=== PATIENT | female | born 1980 | race Hispanic/Latino ===

== ENCOUNTER 2017-09-07 16:21 | Emergency (ER) | payer BC ==
[~2017-09-07] VITALS: Ht 172.7 cm; Wt 113.4 kg
== END 2017-09-07 17:25 | disposition home or self-care (01) ==
LOC: FSED 16:21
DX: M54.31 Sciatica, right side (principal); Z98.84 Bariatric surgery status
CPT/HCPCS: 99282

== ENCOUNTER 2019-01-04 17:34 | Emergency (ER) | payer BC ==
[~2019-01-04] VITALS: Ht 172.7 cm; Wt 113.4 kg
--- OUTSIDE RECORDS SUMMARY | 2019-01-04 17:36 | XMS REPORT ---
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 exam V72.31 Active Any Machado MD Routine gynecological examination Pelvic pain 625.9 Active Any Machado MD Unspecified symptom associated with female genital organs Screening for bacteriuria V81.5 Active Any Machado MD Screening for nephropathy Screening for endocrine disease V77.99 Active Any Machado MD Screening for other and unspecified endocrine, nutritional, metabolic, and immunity disorders BMI 36.0-36.9 Active Tova PETER Body Mass Index 36.0-36.9, adult Routine gynecological examination V72.31 Active Tova PETER Routine gynecological examination Screening for lipid disorder V77.91 Active Tova PETER Screening for lipoid disorders Screening visit for sexually trans dis V74.5 Active Tova PETER Screening examination for venereal disease Oral contraceptive pill surveillance V25.41 Active Tova Jones WHNP Encounter for surveillance of contraceptive pill Oral contraceptive, initial prescription V25.01 Inactive Tova Jones WHNP Encounter for general counseling on prescription of oral contraceptives Well woman exam ICD-V72.3 Inactive Tova Jones WHNP Well woman exam V72.3 Resolved Tova Jones ROME Special investigations and examinations - Gynecological examination Medication List Medication Instructions Start Date Stop Date Generic Name NDC Status Provider Patient Instruction SPRINTEC 28 0.25-35 MG-MCG ORAL TABLET Take 1 tablet by mouth daily SPRINTEC 28 0.25-35 MG-MCG ORAL TABLET 104620 NORGESTIMATE-ETH ESTRADIOL Inactive SPRINTEC 28 0.25-35 MG-MCG ORAL TABLET Take 1 tablet by mouth daily SPRINTEC 28 0.25-35 MG-MCG ORAL TABLET [id number] NORGESTIMATE-ETH ESTRADIOL Inactive SPRINTEC 28 0.25-35 MG-MCG ORAL TABLET 1 tablet daily SPRINTEC 28 0.25-35 MG-MCG ORAL TABLET [id number] NORGESTIMATE-ETH ESTRADIOL Inactive SPRINTEC 28 0.25-35 MG-MCG ORAL TABLET Take 1 tablet by mouth daily NORGESTIMATE-ETH ESTRADIOL [id number] No Longer Active Tova PETER Active SPRINTEC 28 0.25-35 MG-MCG ORAL TABLET Take 1 tablet by mouth daily NORGESTIMATE-ETH ESTRADIOL [id number] No Longer Active Tova PETER Active SPRINTEC 28 0.25-35 MG-MCG ORAL TABLET 1 tablet daily NORGESTIMATE-ETH ESTRADIOL [id number] No Longer Active Tova PETER Active Vital Signs Date Name Value Unit Range Description blood pressure, diastolic 78 mm[Hg] BP raygoza blood pressure, systolic 112 mm[Hg] BP sys height E&M 68 [in_us] Bdy height pulse rate E&M 89 /min Heart rate temperature E&M 98.0 [degF] Body temperature weight E&M 239 [lb_av] Weight Measured blood pressure, diastolic 85 mm[Hg] BP raygoza blood pressure, systolic 122 mm[Hg] BP sys height E&M 68 [in_us] Bdy height pulse rate E&M 72 /min Heart rate respiratory rate E&M 14 /min Resp rate temperature E&M 97.9 [degF] Body temperature weight E&M 238 [lb_av] Weight Measured blood pressure, diastolic 83 mm[Hg] BP raygoza blood pressure, systolic 114 mm[Hg] BP sys height E&M 68 [in_us] Bdy height pulse rate E&M 76 /min Heart rate temperature E&M 98.5 [degF] Body temperature Diagnostic Results Date Name Value Unit Range Description Lab Report: FSH, Serum, hCG,Beta Subunit, Qnt, Serum, TSH Rfx on Abnorma ... - Chemistry thyroid stimulating hormone, serum 0.661 u[iU]/mL 0.450-4.500 human chorionic gonadotropin, total, serum <1 mIU/mL m[iU]/mL follicle stimulating hormone, serum 3.7 m[iU]/mL Office Visit: Acute Visit-s12 - Chemistry beta HCG, urine, semiquantitative negative Lab Report: CBC With Differential/Platelet, Comp. Metabolic Panel (14), ... - Chemistry very low density lipoproteins 11 mg/dL 5-40 Lab Report: CBC With Differential/Platelet, Lipid Panel, Panel [id number], H ... - Chemistry hepatitis B surface antigen Negative Negative Lab Report: CBC With Differential/Platelet, Comp. Metabolic Panel (14), ... - Chemistry chloride, serum 100 mmol/L 96-106 urea nitrogen, blood 9 mg/dL 6-20 Office Visit: Annual / Family Planning Female-s11 - Urinalysis leukocyte esterase, urine, by dipstick negative Lab Report: CBC With Differential/Platelet, Comp. Metabolic Panel (14), ... - Hematology mean corpuscular hemoglobin concentration, RBC 32.1 G/DL % 31.5-35.7 erythrocyte (RBC) count 4.15 X10E6/UL 10*6/mm3 3.77-5.28 Office Visit: Annual / Family Planning Female-s11 - Urinalysis nitrite, urine, semiquantitative negative Lab Report: CBC With Differential/Platelet, Comp. Metabolic Panel (14), ... - Serology hepatitis C antibody, serum <0.1 0.0-0.9 Office Visit: Annual / Family Planning Female-s11 - Urinalysis urine color yellow Lab Report: CBC With Differential/Platelet, Comp. Metabolic Panel (14), ... - Chemistry Absolute Neutrophils 2.4 X10E3/UL 10*3/uL 1.4-7.0 Office Visit: Annual / Family Planning Female-s11 - Urinalysis bilirubin, urine negative Lab Report: CBC With Differential/Platelet, Comp. Metabolic Panel (14), ... - Chemistry LDL cholesterol, serum 68 mg/dL 0-99 urea nitrogen/creatinine ratio, serum 13 9-23 Lab Report: CBC With Differential/Platelet, Comp. Metabolic Panel (14), ... - Hematology mean corpuscular volume, RBC 95 fL 79-97 Lab Report: CBC With Differential/Platelet, Comp. Metabolic Panel (14), ... - Chemistry HDL cholesterol, serum 56 mg/dL >39 Lab Report: CBC With Differential/Platelet, Comp. Metabolic Panel (14), ... - Hematology monocytes as percent of blood leukocytes 9 % Not Estab. Lab Report: CBC With Differential/Platelet, Comp. Metabolic Panel (14), ... - Chemistry albumin/globulin ratio, serum 1.6 1.2-2.2 creatinine, serum 0.67 mg/dL 0.57-1.00 cholesterol, serum 135 mg/dL 775-151 6104/10/22 bilirubin, serum, total 0.6 mg/dL 0.0-1.2 Lab Report: CBC With Differential/Platelet, Comp. Metabolic Panel (14), ... - Hematology Eosinophil Absolute Count 0.2 X10E3/UL 10*3/uL 0.0-0.4 Lab Report: Chlamydia/GC Amplification - Lab chlamydia DNA probe Negative Negative Office Visit: Annual / Family Planning Female-s11 - Urinalysis appearance, urine clear blood in urine (hemoglobin) by dipstick negative Lab Report: CBC With Differential/Platelet, Comp. Metabolic Panel (14), ... - Chemistry aspartate aminotransferase (SGOT), serum 18 U/L 0-40 Lab Report: CBC With Differential/Platelet, Comp. Metabolic Panel (14), ... - Hematology red blood cell distribution width 14.3 % 12.3-15.4 leukocyte count, blood 4.8 X10E3/UL 10*3/mm3 3.4-10.8 Office Visit: Annual / Family Planning Female-s11 - Urinalysis pH, urine, semiquantitative 6.5 Lab Report: CBC With Differential/Platelet, Comp. Metabolic Panel (14), ... - Chemistry potassium, serum 4.3 mmol/L 3.5-5.2 albumin, serum 4.1 g/dL 3.5-5.5 immature granulocytes, percentage of total cells, blood 0 % Not Estab. Lab Report: CBC With Differential/Platelet, Comp. Metabolic Panel (14), ... - Hematology lymphocyte count, blood, automated 1.8 X10E3/UL 10*3/mm3 0.7-3.1 hematocrit, blood 39.6 % 34.0-46.6 Lab Report: Chlamydia/GC Amplification - Microbiology Neisseria gonorrhoeae DNA probe Negative Negative Lab Report: CBC With Differential/Platelet, Comp. Metabolic Panel (14), ... - Chemistry sodium, serum 141 mmol/L 134-144 Lab Report: CBC With Differential/Platelet, Comp. Metabolic Panel (14), ... - Urinalysis urine culture MUG Lab Report: CBC With Differential/Platelet, Comp. Metabolic Panel (14), ... - Hematology neutrophils as percent of blood leukocytes 50 % Not Estab. basophils as percent of blood leukocytes 1 % Not Estab. Office Visit: Annual / Family Planning Female-s11 - Urinalysis protein, urine, semiquantitative (dipstick) negative Lab Report: CBC With Differential/Platelet, Comp. Metabolic Panel (14), ... - Serology rapid plasma reagin antibody, serum Non Reactive Non Reactive Lab Report: CBC With Differential/Platelet, Comp. Metabolic Panel (14), ... - Chemistry carbon dioxide, venous blood 26 mmol/L 20-29 triglyceride, serum, fasting 54 mg/dL 0-149 calcium, serum 8.8 mg/dL 8.7-10.2 alanine aminotransferase (SGPT), serum 16 U/L 0-32 Lab Report: CBC With Differential/Platelet, Comp. Metabolic Panel (14), ... - Hematology mean corpuscular hemoglobin, RBC 30.6 pg 26.6-33.0 Office Visit: Annual / Family Planning Female-[facility] - Urinalysis specific gravity, urine 1.005 Lab Report: CBC With Differential/Platelet, Comp. Metabolic Panel (14), ... - Chemistry protein, total, serum 6.7 g/dL 6.0-8.5 alkaline phosphatase, serum 55 U/L 39-117 Lab Report: CBC With Differential/Platelet, Comp. Metabolic Panel (14), ... - Hematology hemoglobin, blood 12.7 g/dL 11.1-15.9 lymphocytes as percent of blood leukocytes 37 % Not Estab. Lab Report: CBC With Differential/Platelet, Comp. Metabolic Panel (14), ... - Chemistry hemoglobin A1C, blood, as % of total hemoglobin 5.1 % 4.8-5.6 Office Visit: Annual / Family Planning Female-s11 - Urinalysis glucose, urine, semiquantitative negative Lab Report: CBC With Differential/Platelet, Comp. Metabolic Panel (14), ... - Genetics/fertility eGFR if 128 mL/min/1.73m2 >59 Lab Report: CBC With Differential/Platelet, Comp. Metabolic Panel (14), ... - Hematology basophil count, absolute 0.0 x10E3/uL 0.0-0.2 Lab Report: CBC With Differential/Platelet, Panel [id number], RPR, TSH Rfx o ... - Chemistry thyroxine, serum, free 0.99 ng/dL 0.82-1.77 Lab Report: CBC With Differential/Platelet, Comp. Metabolic Panel (14), ... - Chemistry globulin, serum 2.6 1.5-4.5 Estimated Glomerular Filtration Rate (calc) 111 mL/min/1.73m2 >59 Lab Report: CBC With Differential/Platelet, Comp. Metabolic Panel (14), ... - Hematology eosinophils as percent of blood leukocytes 3 % Not Estab. Lab Report: CBC With Differential/Platelet, Comp. Metabolic Panel (14), ... - Chemistry blood glucose, random 77 mg/dL 65-99 Office Visit: Annual / Family Planning Female-s11 - Urinalysis urobilinogen, urine, semiquantitative (dipstick) negative Lab Report: CBC With Differential/Platelet, Comp. Metabolic Panel (14), ... - Hematology monocyte count, blood, automated 0.4 X10E3/UL 10*3/uL 0.1-0.9 platelet count 202 X10E3/UL 10*3/mm3 150-379 Office Visit: Annual / Family Planning Female-s11 - Urinalysis ketones, urine, by test strip negative Encounters Date Encounter Provider Code Facility 14:38:42 CDT Est Patient Exp Problem - 48495 Any Machado MD CPT-94644 [facility] 16:37:21 CDT Est Patient Exp Problem - 06857 Any Machado MD CPT-33195 [facility] [employer] Procedures Code Procedure Name Date Entry Date Standard Description CPT-01385 Est Patient Well Exam (18 - 39 Yrs) - 16829 12:22:23 CDT CPT-31956 Urinalysis - - In House 12:23:34 CDT CPT-14658 Urinalysis - Dip only - In House 12:23:33 CDT CPT-19584 Est Patient Well Exam (18 - 39 Yrs) - 74449 12:23:32 CDT CPT-82788 Handling of specimen for transfer 11:44:56 CDT CPT-71018 Venipuncture 11:44:56 CDT CPT-80717 Urinalysis - - In House 11:44:56 CDT CPT-88953 Urinalysis - Dip only - In House 11:44:56 CDT CPT-74346 New Patient Well Exam (18 - 39 Yrs) - [id number] 11:44:55 CDT
[2019-01-04] MEDS ORDERED: KETOROLAC TROMETHAMINE 30 MG/ML VIAL IV ONE (18:46)
--- NOTE | 2019-01-04 18:54 | NUR ---
REPORT TO GEMA KEITH ALL QUESTIONS ANSWERED
[2019-01-04] MEDS ORDERED: KETOROLAC TROMETHAMINE 30 MG/ML VIAL ONE (19:04)
--- NOTE | 2019-01-04 19:51 | Diagnostic Imaging Report ---
EXAM: CT Abdomen and Pelvis WITHOUT contrast INDICATION: Right-sided abdominal pain for one day COMPARISON: None. TECHNIQUE: Abdomen and pelvis were scanned utilizing a multidetector helical scanner from the lung base to the pubic symphysis without administration of IV contrast. Absence of intravenous contrast decreases sensitivity for detection of focal lesions and vascular pathology. Coronal and sagittal reformations were obtained. Routine protocol was performed. IV CONTRAST: None. ORAL CONTRAST: Water RADIATION DOSE: Total DLP: 864.7 mGy*cm Estimated effective dose: (DLP x 0.015 x size factor) mSv COMPLICATIONS: None FINDINGS: LINES and TUBES: None. LOWER THORAX: Unremarkable HEPATOBILIARY: No focal hepatic lesions. No biliary ductal dilation. GALLBLADDER: Cholecystectomy. SPLEEN: No splenomegaly. PANCREAS: No focal masses or ductal dilatation. ADRENALS: No adrenal nodules KIDNEYS/URETERS: No hydronephrosis. No cystic or solid mass lesions. 2 mm nonobstructing calcified stone in the upper pole of the left kidney on series 2, image 30. No perinephric fat stranding or fluid collections. GI TRACT: There appears to be postsurgical changes versus a linear calcification in the distal esophagus and proximal stomach. No abnormal distention, wall thickening, or evidence of bowel obstruction. Appendix is normal. PELVIC ORGANS/BLADDER: Unremarkable. LYMPH NODES: No lymphadenopathy. VESSELS: Unremarkable. PERITONEUM / RETROPERITONEUM: No free air or fluid. BONES: Moderate degenerative changes at L5-S1. SOFT TISSUES: Tiny umbilical hernia containing fat. IMPRESSION: 1. Nonobstructing 2 mm left nephrolithiasis. 2. Otherwise, no acute abnormalities in the abdomen and pelvis. Signed by: Dr. Lamar Sylvester M.D. on 01/04/2019 7:47 PM
[2019-01-04] MEDS ORDERED: LEVOFLOXACIN 500MG/D5W 100ML 100 ML IV ONE ×2 (20:00→20:22)
[2019-01-04 21:48] VITALS: BP 119/86
== END 2019-01-04 21:51 | disposition home or self-care (01) ==
LOC: FSED 17:34
DX: R30.0 Dysuria (principal); N12 Tubulo-interstitial nephritis, not specified as acute or chronic; N10 Acute pyelonephritis; N39.0 Urinary tract infection, site not specified; Z98.84 Bariatric surgery status
CPT/HCPCS: 74176; 80048; 80076; 81003; 81025; 85025; 96374; 99283; J1885; J1956